=== PATIENT | female | born 1980 | race Caucasian/White ===

== ENCOUNTER → 2016-10-07 | Day surgery (SDC) | payer OTHER | END | disposition home or self-care (01) | LOC: FAS 11:00 | DX: C43.59 Malignant melanoma of other part of trunk (principal); Z88.0 Allergy status to penicillin; Z80.3 Family history of malignant neoplasm of breast; Z80.0 Family history of malignant neoplasm of digestive organs; Z98.890 Other specified postprocedural states | CPT/HCPCS: 84703; 88305; 88342; J1100; J1170; J1885; J2405; J2704; J3010 ==